=== PATIENT | male | born 1965 | race Caucasian/White ===

== ENCOUNTER 2022-09-24 10:54 | Emergency (ER) | payer BC, SELFPAY ==
[2022-09-24 11:13] VITALS: BP 156/89; PULSE 48; RESP 20; TEMP 35.7; O2SAT 96; BMI 38.7
--- NOTE | 2022-09-24 11:38 | CRLHL7_ITS ---
For Patients: As a result of the Century Cures Act, medical imaging exams and procedure reports are released immediately into your electronic medical record. You may view this report before your referring provider. If you have questions, please contact your health care provider. DATE: 09/24/2022. CLINICAL HISTORY: Syncope. TECHNIQUE: Standard helical CT image acquisition through the head and neck following the administration of intravenous contrast was performed. Multiplanar reconstructed images performed on a separate workstation. COMPARISON: None available. FINDINGS: The great vessels are patent. The common carotid arteries are patent. The proximal ICAs are patent without signficant stenoses by NASCET criteria. The more distal cervical ICAs are patent. The origins of the vertebral arteries are patent. The cervical segments of the vertebral arteries are patent. The petrous, cavernous, and supraclinoid segments of the internal carotid arteries are patent. The anterior and middle cerebral arteries are patent. The anterior communicating artery is visualized and is within normal limits. The intracranial vertebral arteries, basilar trunk, and posterior cerebral arteries are patent. No intracranial proximal large vessel occlusion or flow-limiting luminal stenosis. No evidence of cerebral aneurysm. No findings to suggest an arterial-venous shunting lesion. Partial visualization of a calcified lesion in the visualized upper lobe of the right lung likely reflects a granuloma. Calcified superior mediastinal lymph nodes. IMPRESSION: 1. No intracranial proximal large vessel occlusion or flow-limiting luminal stenosis. 2. Patent cervical arterial vasculature without hemodynamically significant luminal stenosis. Please note that all CT scans at this facility use dose modulation, iterative reconstruction, and/or weight-based dosing when appropriate to reduce radiation dose to as low as reasonably achievable. Dictated by Colton An MD @ 09/24/2022 1:42:20 PM (Electronically Signed)
--- NOTE | 2022-09-24 11:38 | CRLHL7_ITS ---
For Patients: As a result of the Century Cures Act, medical imaging exams and procedure reports are released immediately into your electronic medical record. You may view this report before your referring provider. If you have questions, please contact your health care provider. INDICATION: Syncope. TECHNIQUE: Noncontrast CT images acquired through the brain. COMPARISON: None. FINDINGS: The ventricles and sulci are within normal limits for patient age. No mass effect or midline shift. The guerra-white differentiation is maintained. No acute intracranial hemorrhage or pathologic extra-axial fluid collection. The globes are symmetric. The calvarium is intact. The visualized paranasal sinuses and mastoid air cells are clear. IMPRESSION: No acute intracranial hemorrhage or mass effect. Please note that all CT scans at this facility use dose modulation, iterative reconstruction, and/or weight-based dosing when appropriate to reduce radiation dose to as low as reasonably achievable. Dictated by Pedro Tuttle MD @ 09/24/2022 12:28:53 PM (Electronically Signed)
--- NOTE | 2022-09-24 11:45 | ED_ITS ---
HPI - General Adult General Time Seen by Provider: 11:45 Date Seen: 09/24/22 Chief complaint: Syncope/Fainted Stated complaint: lightheaded syncope Time Seen by Provider: 09/24/22 11:05 Source: patient Mode of arrival: ambulatory Limitations: no limitations History of Present Illness HPI narrative: Patient is a 57-year-old male had a syncopal episode this morning. He reports that he has not had any these in the past. He reports he got up and was feeling okay this morning. He reports that he had sexual relations with his , and then subsequently developed this syncopal spell. He was putting his clothes on and he felt lightheaded and went to the ground. He denies any injury. He had no chest pain. He has a mild headache, a his reports that he has been a little slow to respond. He denies hitting his head. He has had no recent fever chills cough. He has no history of current coronary disease. Does have history of hypertension for which she takes medication Related Data Allergies Allergy/AdvReac Type Severity Reaction Status Date / Time No Known Drug Allergies Allergy Verified 09/24/22 11:12 Review of Systems Status of ROS: Reports: 10 or more systems reviewed and unremarkable except as noted in History and below [facility] Social History Smoking Status: Never smoker Do you use any of these nicotine containing products: None Second hand tobacco smoke exposure: No How often do you have a drink containing alcohol: 2-4 times a month How many standard drinks containing alcohol do you have on a typical day: 1 or 2 How often do you have six or more drinks on one occasion: Never AUDIT-C Alcohol total score: 2 Non-prescribed substance use: denies use service: No Exam Narrative: Exam Narrative: Objective: Vital signs show slightly elevated blood pressure Patient is alert orient x3, his reports that from baseline is little slow to respond but he does not respond appropriately. HEENt is unremarkable, pupils are equal reaction to light, extraocular moves intact, no facial asymmetry tongue, mouth slightly dry tongue protrudes midline, no facial asymmetry Neck is supple Chest is clear Heart rhythm regular 2/6 systolic ejection murmur no S3-S4 Abdomen obese benign nontender Extremities are no edema neurologic nonfocal, good peripheral perfusion, skin warm and dry Const: Vital Signs, click to edit/add: Vital Signs - 24 hr 09/24/22 11:13 09/24/22 11:50 09/24/22 13:13 Temperature 96.3 F L Pulse Rate Pulse Rate [Apical ] 48 L Respiratory Rate 20 Blood Pressure Blood Pressure [Le ft Upper Arm] 156/89 H Blood Pressure [or thostatic sitting Right Arm] 156/101 H Pulse Oximetry 96 95 Oxygen Delivery Me thod Room Air 09/24/22 12:43 09/24/22 13:00 09/24/22 13:02 Temperature Pulse Rate 57 L 52 L 62 Pulse Rate [Apical ] Respiratory Rate Blood Pressure 156/101 H Blood Pressure [Le ft Upper Arm] Blood Pressure [or thostatic sitting Right Arm] Pulse Oximetry 99 100 98 Oxygen Delivery Me thod Course Vital Signs Vital signs: Initial Vital Signs Temperature 96.3 F L 09/24/22 11:13 Temperature Source Temporal Artery Scan 09/24/22 11:13 Pulse Rate 48 L 09/24/22 11:13 Pulse Rhythm 09/24/22 11:13 Respiratory Rate 20 09/24/22 11:13 Blood Pressure 156/89 H 09/24/22 11:13 Blood Pressure Mean 111 09/24/22 11:13 Blood Pressure Position Supine 09/24/22 11:13 Pulse Oximetry 96 09/24/22 11:13 Oxygen Delivery Method 09/24/22 11:13 Vital Signs Temperature 96.3 F L 09/24/22 11:13 Pulse Rate 48 L 09/24/22 11:13 Respiratory Rate 20 09/24/22 11:13 Blood Pressure 156/89 H 09/24/22 11:13 Pulse Oximetry 96 09/24/22 11:13 Oxygen Delivery Method 09/24/22 11:13 Temperature 96.3 F L 09/24/22 11:13 Pulse Rate 62 09/24/22 13:02 Respiratory Rate 20 09/24/22 11:13 Blood Pressure 156/101 H 09/24/22 13:13 Pulse Oximetry 98 09/24/22 13:02 Oxygen Delivery Method 09/24/22 11:13 Medical Decision Making MDM Narrative Medical decision making narrative: [age] year white male with post coital syncopal episode, he has felt mildly dehydrated, his pulse was slow, likely this is a vasovagal type spell. However I think given his situation, I think a CT scan of his head as well as a CTA of his head neck would be appropriate, rule out stroke. The patient will get laboratory studies, EKG, troponin. Disposition pending findings. Will give him 1 L normal saline. Continue to monitor hemodynamics. Addendum: Patient has a head and neck CT angio there are unremarkable his head also looks unremarkable on CT. The patient's laboratory studies look reassu ring, platelets a were a little low at 121,000 hundred twenty one thousand his liver function profile is unremarkable troponin negative CRP negative negative for COVID influenza and RSV. Patient's EKG by my read shows sinus bradycardia no acute ST T wave changes limited R-wave progression anteriorly. This point he feels stable reassured I think observation at home would be appropriate I think all. I think also appropriately would be reasonable to put a Holter monitor on him. Follow-up with primary care in the next 2-3 days certainly sooner changes or concerns return to ED light activity in from. Lab Data Labs: Lab Results 09/24/22 09/24/22 09/24/22 Range/Units 11:55 11:55 11:55 WBC 9.28 (4.50-11.00) K/uL RBC 5.58 (4.30-5.90) m/uL Hgb 16.6 (13.5-17.5) gm/dL Hct 48.6 (37.0-53.0) % MCV 87 (80-100) fL MCH 30 (26-34) pg MCHC 34 (32-36) gm/dL RDW Coeff of Rogerio 13.0 (11.5-15.5) % Plt Count 121 L (140-440) K/uL Neut % (Auto) 84.5 H (42.0-72.0) % Lymph % (Auto) 10.0 L (20-44) % [place] % (Auto) 4.8 (0.0-11.0) % Eos % (Auto) 0.5 (0.0-7.0) % Baso % (Auto) 0.1 (0.0-3.0) % Neut # (Auto) 7.80 H (1.7-7.0) K/uL Lymph # (Auto) 0.90 (0.90-2.90) K/uL [place] # (Auto) 0.40 (0.00-0.90) K/UL Eos # (Auto) 0.05 (0.00-0.50) K/uL Baso # (Auto) 0.01 (0.00-0.30) K/uL INR 1.02 (0.91-1.10) APTT 25 (23-33) Seconds Sodium 141 (135-149) mmol/L Potassium 4.9 (3.6-5.1) mmol/L Chloride 106 (96-114) mmol/L Carbon Dioxide 32 (20-32) mmol/L BUN 18 (7-30) mg/dL Creatinine 0.9 (0.5-1.5) mg/dL Estimated Creat Clear 99.40 Estimated GFR 100 ml/min Glucose 115 (60-115) mg/dL Calcium 9.5 (8.4-10.6) mg/dL Total Bilirubin (0.1-1.5) mg/dL Direct Bilirubin (0.0-0.5) mg/dL AST (12-35) U/L ALT (4-50) U/L Alkaline Phosphatase (40-150) U/L Troponin I (0.01-0.04) ng/mL C-Reactive Protein (0.5-1.0) mg/dL Total Protein (6.0-8.3) g/dL Albumin (3.3-5.0) g/dL SARS-CoV-2 (PCR) (Negative) Influenza Type A (PCR) (Negative) Influenza Type B (PCR) (Negative) RSV (PCR) (Negative) 09/24/22 09/24/22 Range/Units 11:55 11:55 WBC (4.50-11.00) K/uL RBC (4.30-5.90) m/uL Hgb (13.5-17.5) gm/dL Hct (37.0-53.0) % MCV (80-100) fL MCH (26-34) pg MCHC (32-36) gm/dL RDW Coeff of Rogerio (11.5-15.5) % Plt Count (140-440) K/uL Neut % (Auto) (42.0-72.0) % Lymph % (Auto) (20-44) % [place] % (Auto) (0.0-11.0) % Eos % (Auto) (0.0-7.0) % Baso % (Auto) (0.0-3.0) % Neut # (Auto) (1.7-7.0) K/uL Lymph # (Auto) (0.90-2.90) K/uL [place] # (Auto) (0.00-0.90) K/UL Eos # (Auto) (0.00-0.50) K/uL Baso # (Auto) (0.00-0.30) K/uL INR (0.91-1.10) APTT (23-33) Seconds Sodium (135-149) mmol/L Potassium (3.6-5.1) mmol/L Chloride (96-114) mmol/L Carbon Dioxide (20-32) mmol/L BUN (7-30) mg/dL Creatinine (0.5-1.5) mg/dL Estimated Creat Clear Estimated GFR ml/min Glucose (60-115) mg/dL Calcium (8.4-10.6) mg/dL Total Bilirubin 1.0 (0.1-1.5) mg/dL Direct Bilirubin 0.0 (0.0-0.5) mg/dL AST 28 (12-35) U/L ALT 29 (4-50) U/L Alkaline Phosphatase 54 (40-150) U/L Troponin I < 0.01 L (0.01-0.04) ng/mL C-Reactive Protein 0.6 (0.5-1.0) mg/dL Total Protein 7.3 (6.0-8.3) g/dL Albumin 4.4 (3.3-5.0) g/dL SARS-CoV-2 (PCR) Negative SARS-CoV-2 (Negative) Influenza Type A (PCR) Negative PCR FLU A (Negative) Influenza Type B (PCR) Negative PCR FLU B (Negative) RSV (PCR) Negative PCR RSV (Negative) Discharge Plan Discharge Clinical Impression: Syncope Patient Disposition: Home w/ Parent or Adult Condition: Improved Instructions: Syncope (ED) Additional Instructions: Rest, light activity, recheck with primary care within the next week. Pulse has been in a good state at this point, but would put him on a Holter monitor to monitor for the next 2 days. Light activity, fluids, return as needed sooner. Activity Level: Light activity Discharge Diet: Regular Stand Alone Forms: [employer] Info Instructions
[2022-09-24 11:50] VITALS: O2SAT 95
[2022-09-24 12:10] LABS: Basophils Absolute Auto 0.01 K/uL (0.00-0.30); Basophils Percent Auto 0.1 % (0.0-3.0); Eosinophils Absolute Auto 0.05 K/uL (0.00-0.50); Eosinophils Percent Auto 0.5 % (0.0-7.0); Hematocrit 48.6 % (37.0-53.0); Hemoglobin* 16.6 gm/dL (13.5-17.5); Immature Granulocytes Abs Auto 0.01 K/uL (0.00-0.30); Immature Granulocytes Pct Auto 0.1 %; Mean Corpuscular HGB Conc 34 gm/dL (32-36); Mean Corpuscular Hemoglobin 30 pg (26-34); Mean Corpuscular Volume 87 fL (80-100); Monocytes Percent Auto 4.8 % (0.0-11.0); Neutrophils Percent Auto 84.5 % (42.0-72.0); Platelet Count* 121 K/uL (140-440); Red Blood Count 5.58 m/uL (4.30-5.90); Slide Review Reflex No; White Blood Count* 9.28 K/uL (4.50-11.00)
[2022-09-24 12:16] LABS: Albumin* 4.4 g/dL (3.3-5.0)
[2022-09-24 12:17] LABS: Chloride* 106 mmol/L (96-114); Sodium* 141 mmol/L (135-149)
[2022-09-24 12:18] LABS: Potassium* 4.9 mmol/L (3.6-5.1)
[2022-09-24 12:20] LABS: Alanine Aminotransferase* 29 U/L (4-50); Alkaline Phosphatase* 54 U/L (40-150); Aspartate Amino Transferase* 28 U/L (12-35); Creatinine* 0.9 mg/dL (0.5-1.5); Estimated Glomerular Filt Rate 100 ml/min; Total Protein* 7.3 g/dL (6.0-8.3)
[2022-09-24 12:21] LABS: Blood Urea Nitrogen* 18 mg/dL (7-30); Calcium* 9.5 mg/dL (8.4-10.6); Carbon Dioxide* 32 mmol/L (20-32); Glucose* 115 mg/dL (60-115)
[2022-09-24 12:23] LABS: C Reactive Protein* 0.6 mg/dL (0.5-1.0)
[2022-09-24] MEDS: 0.9 % SODIUM CHLORIDE 1000 ml 1,000 ML 6000 ML IV (12:24)
[2022-09-24 12:32] LABS: Troponin I* < 0.01 ng/mL (0.01-0.04)
[2022-09-24 12:37] LABS: INR 1.02 (0.91-1.10)
[2022-09-24 12:38] LABS: Partial Thromboplastin Time* 25 Seconds (23-33)
[2022-09-24 12:42] LABS: PCR FLU A Negative PCR FLU A (Negative); PCR FLU B Negative PCR FLU B (Negative); PCR RSV Negative PCR RSV (Negative)
[2022-09-24 12:43] VITALS: PULSE 57; O2SAT 99
[2022-09-24 12:51] LABS: SARS PCR* Negative SARS-CoV-2 (Negative)
[2022-09-24 13:00] VITALS: PULSE 52; O2SAT 100
[2022-09-24 13:02] VITALS: BP 156/101; PULSE 62; O2SAT 98
[2022-09-24 13:13] VITALS: BP 156/101
--- NOTE | 2022-10-19 09:23 | ED.NURSE ---
Contacted patient regarding Holter monitor results per Dr. Rich's orders. Per Dr. Rich Holter monitor results looked okay and patient is to follow up with primary physician for follow up. Pt given these instructions and states he will follow up with Yaron Nur in [place]. [employer] will fax results to [facility]
== END 2022-09-24 13:47 | disposition home or self-care (01) ==
PROVIDERS: Emergency Provider Family Medicine
DX: R55 Syncope and collapse (principal)
CPT/HCPCS: 36415; 70450; 70496; 70498; 80048; 80076; 84484; 85025; 85610; 85730; 86140; 87502; 87634; 87635; 93005; 93225; 93226; 94761; 99284; 99285; J7030; Q9967

== ENCOUNTER 2023-02-23 14:25 | Emergency (ER) | payer BC, SELFPAY ==
[2023-02-23] VITALS (29 sets, daily range): BP systolic 156–185; BP diastolic 80–108; PULSE 42–61; RESP 20; TEMP 36.6; O2SAT 90–99; BMI 39.3
--- NOTE | 2023-02-23 15:03 | CRLHL7_ITS ---
For Patients: As a result of the 21st Century Cures Act, medical imaging exams and procedure reports are released immediately into your electronic medical record. You may view this report before your referring provider. If you have questions, please contact your health care provider. Indication: Left lower quadrant and epigastric pain, flank pain, evaluate for renal stone Technique: Volumetric multidetector CT images of the abdomen and pelvis were without the administration of intravenous contrast. Comparison: None available. Findings: There is minimal basilar atelectasis with airspace opacity in the left lung base. The liver is enlarged with moderate hepatomegaly and hepatic steatosis. There are calcified granulomas within the liver and spleen. The gallbladder is unremarkable without evidence of radiopaque calculus. There is no significant common biliary ductal dilatation or abrupt cut off. There are calcified granulomas within the spleen. The stomach and duodenum are grossly unremarkable. The pancreas is normal in attenuation without significant atrophy. The adrenal glands are unremarkable. Cystic changes of the kidneys are appreciated with nonobstructive calculi within the collecting systems. There is no obvious hydronephrosis or hydroureter. There are dependent calculi seen within the bladder the largest measuring 3.8 millimeters. There is moderate stool seen throughout the colon with minimal distal colonic diverticulosis without evidence of diverticulitis. The appendix is not well visualized. There is no significant mesenteric, retroperitoneal, or pelvic sidewall lymph nodes. There is no evidence of mesenteric or retroperitoneal adenopathy. The solid pelvic viscera are grossly unremarkable. There is no free fluid or free air. There is a small fat containing umbilical hernia. The lumbar vertebral body heights are grossly maintained with minimal endplate Schmorl`s defects. There is mild facet arthrosis. Impression: Multiple nonobstructive calculi within the bilateral collecting systems without evidence of hydronephrosis. However, there are dependent calculi within the bilateral the largest measuring 3.8 millimeters within the dependent right lita bladder. Finding likely represents passage of recent calculus. Moderate stool is seen throughout the colon with minimal distal colonic diverticulosis without evidence of diverticulitis. Sequela of granulomatous changes within the liver and spleen. No other acute intra-abdominal abnormalities are appreciated. Please note that all CT scans at this facility use dose modulation, iterative reconstruction, and/or weight-based dosing when appropriate to reduce radiation dose to as low as reasonably achievable. Dictated by Moody Max MD @ 02/23/2023 4:39:37 PM (Electronically Signed)
[2023-02-23] MEDS: 0.9 % SODIUM CHLORIDE 1000 ml 1,000 ML IV (15:14)
[2023-02-23] MEDS: ONDANSETRON 2 MG/ML inj 4 MG IVP (15:17)
[2023-02-23] MEDS: KETOROLAC 15 MG/ML inj IVP (15:19)
[2023-02-23] MEDS: HYDROmorphone 0.5 mg/0.5 ml inj IVP (15:20)
[2023-02-23 15:27] LABS: Basophils Absolute Auto 0.02 K/uL (0.00-0.30); Basophils Percent Auto 0.2 % (0.0-3.0); Eosinophils Absolute Auto 0.05 K/uL (0.00-0.50); Eosinophils Percent Auto 0.6 % (0.0-7.0); Hemoglobin* 17.1 gm/dL (13.5-17.5); Immature Granulocytes Abs Auto 0.08 K/uL (0.00-0.30); Lymphocytes Percent Auto 13.1 % (20-44); Mean Corpuscular HGB Conc 34 gm/dL (32-36); Mean Corpuscular Hemoglobin 30 pg (26-34); Mean Corpuscular Volume 87 fL (80-100); Monocytes Percent Auto 6.2 % (0.0-11.0); Neutrophils Percent Auto 78.9 % (42.0-72.0); Platelet Count* 159 K/uL (140-440); RDW Coefficient of Variation % 13.1 % (11.5-15.5); Red Blood Count 5.72 m/uL (4.30-5.90); White Blood Count* 8.42 K/uL (4.50-11.00)
[2023-02-23 15:30] LABS: Slide Review Reflex No
--- NOTE | 2023-02-23 15:32 | ED_ITS ---
HPI - General Adult General Time Seen by Provider: 15:00 Date Seen: 02/23/23 Chief complaint: Abdominal Pain Stated complaint: abdominal pain with difficultly breathing Time Seen by Provider: 02/23/23 14:53 History of Present Illness HPI narrative: 57-year-old male with a past history including kidney stones, previous appendectomy, presenting to the ER today with abdominal pain, pain is so sore his abdomen and makes it difficult for him to breathe. He reports that he initially developed abdominal pain two or 3 nights ago. It was fairly generalized at 1st. He was seen in the clinic in [place] 2 days ago and apparently had an x-ray that showed he was constipated. Pain was better yesterday but present throughout the day in a mild level. He was taking MiraLax and has passed a couple of small volume bowel movements her peanut butter consistency. No bloody or black stool. No diarrhea. Has sometimes been nauseous but no vomiting. He was having mild pain today but felt well enough to go to work. No particular new activity at work or any known injury. This afternoon the pain got dramatically worse. Pain is now more on the left side of his abdomen and then generalized. It is also epigastric. It makes him sweaty and nauseous. It does affect his left flank but does not really radiate through to the back. No groin pain. He thinks he passed a kidney stone this weekend, as he noted a Miranda in his urine but has not had any ongoing flank pain or hematuria or other symptoms of UTI. No fever. Related Data Home Medications Medication Instructions Recorded Confirmed lisinopril 40 mg tablet 40 mg PO DAILY 02/23/23 02/23/23 Previous Rx's Medication Instructions Recorded hydrocodone 5 mg-acetaminophen 325 1 tab PO Q6H #14 tabs 02/23/23 mg tablet omeprazole 40 mg capsule,delayed 40 mg PO DAILY #30 caps 02/23/23 release sucralfate 1 gram tablet (Carafate) 1 g PO Q6H PRN #30 tabs 02/23/23 Allergies Allergy/AdvReac Type Severity Reaction Status Date / Time No Known Drug Allergies Allergy Verified 02/23/23 14:36 PFSH PFSH Social History Smoking Status: Never smoker Do you use any of these nicotine containing products: None Second hand tobacco smoke exposure: No How often do you have a drink containing alcohol: 2-4 times a month How many standard drinks containing alcohol do you have on a typical day: 1 or 2 How often do you have six or more drinks on one occasion: Never AUDIT-C Alcohol total score: 2 Non-prescribed substance use: denies use service: No Exam Narrative: Exam Narrative: Constitutional: Appears well-developed and well-nourished. Alert. Conversant. Non toxic. HENT: Head: Atraumatic. Nose: Nose normal. Mouth/Throat: Oral mucosa is clear and moist. no trismus. Pharynx normal. Tonsils symmetric. No tonsillar enlargement, erythema, or exudate. Eyes: Conjunctivae normal. EOM normal. Pupils equal, round, and reactive to light. No scleral icterus. Neck: Normal range of motion. Neck supple. No tracheal deviation present. Cardiovascular: Normal rate, regular rhythm. No gallop. No friction rub. No murmur heard. Symmetric radial artery pulses Pulmonary/Chest: Effort normal. No stridor. No respiratory distress. No wheezes. No rales. No rhonchi . No tenderness. Abdominal: Soft. Bowel sounds normal. No distension. No mass. Epigastric, left upper quadrant, left lower quadrant, and left CVA tenderness. No right upper quadrant tenderness or Kelly sign. No right lower quadrant tenderness. No rash. No bruising. No shingles. No rebound. No guarding. Musculoskeletal: RUE: Normal range of motion. No tenderness. No deformity LUE: Normal range of motion. No tenderness. No deformity RLE: Normal range of motion. No edema. No tenderness. No deformity LLE: Normal range of motion. No edema. No tenderness. No deformity Neurological: Alert and oriented to person, place, and time. Normal strength. CN II-VII intact. No sensory deficit. GCS eye subscore is 4. GCS verbal subscore is 5. GCS motor subscore is 6. Normal coordination Skin: Skin is warm and dry. No rash noted. No pallor. Normal capillary refill. Psychiatric: Normal mood. Normal affect. Const: Vital Signs, click to edit/add: Vital Signs - 24 hr 02/23/23 14:32 02/23/23 14:47 02/23/23 14:48 Temperature 97.9 F Pulse Rate 54 L 51 L Pulse Rate [Pulse Oximeter] 50 L Respiratory Rate 20 Blood Pressure 169/84 H Blood Pressure [Ri ght Upper Arm] 185/91 H Pulse Oximetry 98 94 95 Oxygen Delivery Me thod Room Air Oxygen Flow Rate 02/23/23 15:00 02/23/23 15:02 02/23/23 15:15 Temperature Pulse Rate 51 L 49 L 47 L Pulse Rate [Pulse Oximeter] Respiratory Rate Blood Pressure 168/95 H Blood Pressure [Ri ght Upper Arm] Pulse Oximetry 98 96 97 Oxygen Delivery Me thod Oxygen Flow Rate 02/23/23 15:32 02/23/23 15:34 02/23/23 15:45 Temperature Pulse Rate 49 L 47 L 44 L Pulse Rate [Pulse Oximeter] Respiratory Rate Blood Pressure 170/95 H Blood Pressure [Ri ght Upper Arm] Pulse Oximetry 95 90 97 Oxygen Delivery Me thod Oxygen Flow Rate 02/23/23 15:53 02/23/23 16:00 02/23/23 16:02 Temperature Pulse Rate 43 L 45 L Pulse Rate [Pulse Oximeter] Respiratory Rate Blood Pressure 160/83 H Blood Pressure [Ri ght Upper Arm] Pulse Oximetry 97 98 95 Oxygen Delivery Me thod Nasal Cannula Oxygen Flow Rate 2 02/23/23 16:15 02/23/23 16:31 02/23/23 16:32 Temperature Pulse Rate 48 L 46 L 47 L Pulse Rate [Pulse Oximeter] Respiratory Rate Blood Pressure 160/86 H Blood Pressure [Ri ght Upper Arm] Pulse Oximetry 98 95 97 Oxygen Delivery Me thod Oxygen Flow Rate 02/23/23 16:46 02/23/23 17:01 02/23/23 17:02 Temperature Pulse Rate 42 L 43 L 45 L Pulse Rate [Pulse Oximeter] Respiratory Rate Blood Pressure 156/80 H Blood Pressure [Ri ght Upper Arm] Pulse Oximetry 97 98 98 Oxygen Delivery Me thod Oxygen Flow Rate 02/23/23 17:16 02/23/23 17:31 02/23/23 17:33 Temperature Pulse Rate 44 L 46 L 45 L Pulse Rate [Pulse Oximeter] Respiratory Rate Blood Pressure 175/91 H Blood Pressure [Ri ght Upper Arm] Pulse Oximetry 98 98 98 Oxygen Delivery Me thod Oxygen Flow Rate 02/23/23 17:46 02/23/23 18:00 02/23/23 18:03 Temperature Pulse Rate 49 L 43 L 60 Pulse Rate [Pulse Oximeter] Respiratory Rate Blood Pressure 181/108 H Blood Pressure [Ri ght Upper Arm] Pulse Oximetry 98 98 98 Oxygen Delivery Me thod Oxygen Flow Rate 02/23/23 18:15 02/23/23 18:30 02/23/23 18:33 Temperature Pulse Rate 49 L 56 L 55 L Pulse Rate [Pulse Oximeter] Respiratory Rate Blood Pressure 164/85 H Blood Pressure [Ri ght Upper Arm] Pulse Oximetry 99 97 94 Oxygen Delivery Me thod Oxygen Flow Rate 02/23/23 18:45 02/23/23 19:00 Temperature Pulse Rate 61 50 L Pulse Rate [Pulse Oximeter] Respiratory Rate Blood Pressure Blood Pressure [Ri ght Upper Arm] Pulse Oximetry 95 93 Oxygen Delivery Me thod Oxygen Flow Rate Documenting provider has reviewed patient's vital signs: yes Course Vital Signs Vital signs: Initial Vital Signs Temperature 97.9 F 02/23/23 14:32 Temperature Source Oral 02/23/23 14:32 Pulse Rate 50 L 02/23/23 14:32 Pulse Rhythm Regular 02/23/23 14:32 Pulse Strength 3+ Normal 02/23/23 14:32 Respiratory Rate 20 02/23/23 14:32 Blood Pressure 185/91 H 02/23/23 14:32 Blood Pressure Mean 122 H 02/23/23 14:32 Blood Pressure Position Sitting 02/23/23 14:32 Pulse Oximetry 98 02/23/23 14:32 Oxygen Delivery Method Room Air 02/23/23 14:32 Vital Signs Temperature 97.9 F 02/23/23 14:32 Pulse Rate 50 L 02/23/23 14:32 Respiratory Rate 20 02/23/23 14:32 Blood Pressure 185/91 H 02/23/23 14:32 Pulse Oximetry 98 02/23/23 14:32 Oxygen Delivery Method Room Air 02/23/23 14:32 Temperature 97.9 F 02/23/23 14:32 Pulse Rate 50 L 02/23/23 19:00 Respiratory Rate 20 02/23/23 14:32 Blood Pressure 164/85 H 02/23/23 18:33 Pulse Oximetry 93 02/23/23 19:00 Oxygen Delivery Method Nasal Cannula 02/23/23 15:53 Oxygen Flow Rate 2 02/23/23 15:53 Medical Decision Making MDM Narrative Medical decision making narrative: Presented to the Emergency Department with epigastric, left upper quadrant, and left-sided abdominal pain. The differential diagnosis of abdominal pain includes: Bowel Obstruction, gastritis, Ulcer, Ischemia, Cholecystitis, Diverticulitis, Pancreatitis, UTI, kidney stone, Enteritis/Colitis, amongst many other etiologies. He has had previous appendectomy. Laboratory testing does not reveal a cause for the patient's pain. Lipase normal. CBC reassuring. Stone protocol CT Imaging is noted to be normal. He does have stones with his urinary bladder and a couple of nonobstructing stones within the renal pelvises bilaterally but no other ureteral stones or hydronephrosis. No evidence for bowel obstruction, colitis, diverticulitis, free air. The exact etiology of the abdominal pain is not clear at this time. No life threatening cause or need for emergent surgery or hospital admission is detected today. With a predominance of epigastric pain patient thinks he may have ulcers. He has apparently had H pylori and ulcers in the past. Will start him empirically on Carafate and Prilosec. [place] to use as needed for pain control over the next 24 hours. Patient The patient was advised that if symptoms do not completely resolve within another 1-2 days re-evaluation with primary care or return to the ED is indicated. The patient also understands that if they worsen, they should return to the ER right away. I discussed the uncertainty about the diagnosis and answered the patient's questions. He understands that gastritis cannot be confirmed here in the ER. He will need outpatient follow-up with PCP to arrange endoscopy. He plans to follow-up with [facility]. Abdominal pain return precautions discussed. Incidentally there is note of bilateral atelectasis on his CT scan. There is also mention of a airspace opacity in the lower lung. He has not had any recent cough or other pulmonary symptoms. I believe this is related to atelectasis. Lab Data Labs: Lab Results 02/23/23 02/23/23 Range/Units 14:45 18:02 WBC 8.42 (4.50-11.00) K/uL RBC 5.72 (4.30-5.90) m/uL Hgb 17.1 (13.5-17.5) gm/dL Hct 50.0 (37.0-53.0) % MCV 87 (80-100) fL MCH 30 (26-34) pg MCHC 34 (32-36) gm/dL RDW Coeff of Rogerio 13.1 (11.5-15.5) % Plt Count 159 (140-440) K/uL Neut % (Auto) 78.9 H (42.0-72.0) % Lymph % (Auto) 13.1 L (20-44) % [place] % (Auto) 6.2 (0.0-11.0) % Eos % (Auto) 0.6 (0.0-7.0) % Baso % (Auto) 0.2 (0.0-3.0) % Neut # (Auto) 6.60 (1.7-7.0) K/uL Lymph # (Auto) 1.10 (0.90-2.90) K/uL [place] # (Auto) 0.50 (0.00-0.90) K/UL Eos # (Auto) 0.05 (0.00-0.50) K/uL Baso # (Auto) 0.02 (0.00-0.30) K/uL Abs Immat Gran (auto) 0.08 (0.00-0.30) K/uL Imm/Tot Granulo (auto) 1.0 % Sodium 140 (135-149) mmol/L Potassium 3.8 (3.6-5.1) mmol/L Chloride 104 (96-114) mmol/L Carbon Dioxide 29 (20-32) mmol/L BUN 13 (7-30) mg/dL Creatinine 1.0 (0.5-1.5) mg/dL Estimated Creat Clear 89.46 Estimated GFR 88 ml/min Glucose 123 H (60-115) mg/dL Calcium 9.6 (8.4-10.6) mg/dL Total Bilirubin 1.0 (0.1-1.5) mg/dL AST 37 H (12-35) U/L ALT 37 (4-50) U/L Alkaline Phosphatase 57 (40-150) U/L Total Protein 8.0 (6.0-8.3) g/dL Albumin 4.7 (3.3-5.0) g/dL Lipase 116 (23-300) U/L Urine Color Yellow (Yellow) Urine Appearance Clear (Clear) Urine pH 6.0 (5.0-8.5) Ur Specific [place] 1.025 (1.000-1.030) Urine Protein Negative (Negative) Urine Glucose (UA) Negative (Negative) Urine Ketones Trace A (Negative) Urine Blood Trace-intact A (Negative) Urine Nitrite Negative (Negative) Urine Bilirubin Negative (Negative) Urine Urobilinogen 0.2 (0.2-1.0) Ur Leukocyte Esterase Negative (Negative) Urine RBC Cancelled Urine WBC Cancelled Urine WBC Clumps Cancelled Ur Squamous Epith Cells Cancelled [place] Biurate Crystals Cancelled Calcium Carbonate Cryst Cancelled Calcium Phosphate Cryst Cancelled Calcium Oxalate Crystal Cancelled Cystine Crystals Cancelled Uric Acid Crystals Cancelled Triple Phos Crystals Cancelled Sulfur Crystals Cancelled Cholesterol Crystals Cancelled Tyrosine Crystals Cancelled Hippuric Acid Crystals Cancelled Amorphous Sediment Cancelled Other Sediment Cancelled Urine Bacteria Cancelled Fatty Casts Cancelled Hyaline Casts Cancelled Fine Granular Casts Cancelled Coarse Granular Casts Cancelled Waxy Casts Cancelled RBC Casts Cancelled WBC Casts Cancelled Other Casts Cancelled Urine Starch Cancelled Urine Mucus Cancelled Urine Trichomonas Cancelled Urine Yeast Cancelled Imaging Data CT scan - abdomen: Attestation: I have reviewed the pertinent imaging results. Radiologist's impression: Impression: Multiple nonobstructive calculi within the bilateral collecting systems without evidence of hydronephrosis. However, there are dependent calculi within the bilateral the largest measuring 3.8 millimeters within the dependent right lita bladder. Finding likely represents passage of recent calculus. Moderate stool is seen throughout the colon with minimal distal colonic diverticulosis without evidence of diverticulitis. Sequela of granulomatous changes within the liver and spleen. No other acute intra-abdominal abnormalities are appreciated. Discharge Plan Discharge Clinical Impression: Abdominal pain Qualifiers: Abdominal location: epigastric Qualified Code(s): R10.13 - Epigastric pain Patient Disposition: Home, Self-Care Condition: Stable Instructions: Abdominal Pain (ED) Additional Instructions: As we discussed, we cannot identify the exact cause of your pain today. You do have signs of kidney stones within your kidneys but they are not currently passing and are not causing your pain. We suspect that your pain might be related to stomach acid shukla or ulcers (but these are generally not visible on the CT scan for labs). Please start taking the acid medication. Monitor your symptoms closely in ago worsening or severe pain, fever, bloody vomit or bloody or black stool, weakness, or any concerns return to the ER immediately for recheck Please follow-up with your regular doctor as soon as possible. You may need endoscopy for further workup. Remember, you could come back to the ER any time if you need help Do not drive or operate machinery after you have taken hydrocodone because this can cause drowsiness. Hydrocodone can be addictive. Prescriptions: New hydrocodone-acetaminophen 5-325 mg tablet 1 tab PO Q6H Qty: 14 0RF sucralfate [Carafate] 1 gram tablet 1 g PO Q6H PRNQty: 30 0RF omeprazole 40 mg capsule,delayed release(DR/EC) 40 mg PO DAILY Qty: 30 0RF No Action lisinopril 40 mg tablet 40 mg PO DAILY Follow Up/Referrals: Provider,Not a Local [Primary Care Provider] - Stand Alone Forms: Thermodynamic Process Control Info Instructions
[2023-02-23 15:37] LABS: Albumin* 4.7 g/dL (3.3-5.0)
[2023-02-23 15:38] LABS: Chloride* 104 mmol/L (96-114); Potassium* 3.8 mmol/L (3.6-5.1); Sodium* 140 mmol/L (135-149)
[2023-02-23 15:40] LABS: Alkaline Phosphatase* 57 U/L (40-150); Aspartate Amino Transferase* 37 U/L (12-35); Blood Urea Nitrogen* 13 mg/dL (7-30); Carbon Dioxide* 29 mmol/L (20-32); Est. Creatinine Clearance* 89.46; Estimated Glomerular Filt Rate 88 ml/min
[2023-02-23 15:41] LABS: Alanine Aminotransferase* 37 U/L (4-50); Calcium* 9.6 mg/dL (8.4-10.6); Glucose* 123 mg/dL (60-115); Lipase* 116 U/L (23-300)
--- NOTE | 2023-02-23 15:52 | ED.NURSE ---
Patient's sats dropped to 85% following Dilaudid administration. Patient does reports pain relief and O2 applied via [place].
[2023-02-23 18:12] LABS: Appearance Urine Clear (Clear); Bilirubin Urine Negative (Negative); Blood Urine Trace-intact (Negative); Color Urine Yellow (Yellow); Glucose Urine Negative (Negative); Ketones Urine Trace (Negative); Leukocyte Esterase Urine Negative (Negative); Nitrite Urine Negative (Negative); Protein Urine Negative (Negative); Specific Gravity Urine 1.025 (1.000-1.030); Urobilinogen Urine 0.2 (0.2-1.0)
== END 2023-02-23 19:21 | disposition home or self-care (01) ==
PROVIDERS: Emergency Provider Emergency Medicine
DX: R10.13 Epigastric pain (principal)
CPT/HCPCS: 36415; 74176; 80053; 81003; 81015; 83690; 85025; 87040; 96374; 96375; 99283; 99284; J1170; J1885; J2405; J7030

== ENCOUNTER 2023-02-25 19:21 | Emergency (ER) | payer BC, SELFPAY ==
[2023-02-25] VITALS (19 sets, daily range): BP systolic 101–188; BP diastolic 71–102; PULSE 43–68; RESP 12–16; TEMP 36.2; O2SAT 89–97; BMI 39.3
[2023-02-25] MEDS: KETOROLAC 15 MG/ML inj IVP (20:11)
--- NOTE | 2023-02-25 20:12 | ED.GENADULT ---
HPI - General Adult General Time Seen by Provider: 20:12 Date Seen: 02/25/23 Chief complaint: Abdominal Pain Stated complaint: Abdominal pain Time Seen by Provider: 02/25/23 19:27 Source: patient Mode of arrival: ambulatory Limitations: no limitations History of Present Illness HPI narrative: Patient is a 57-year-old male presented emergency department for abdominal pain. He states he was here 2 days ago was diagnosed with kidney stones. He was sent home with hydrocodone. He states this to the pain was fine but was gradually worse throughout the day. He says the pain was worse again today any tried to take Trinity without improvement in his symptoms. Has had no nausea or vomiting has been able to eat without issue but states the pain is getting worse again and feels like it did a couple days ago. He has fevers, chills, chest pain, dysuria, difficulty urinating, dysuria, headaches, diarrhea. Says the pain is and is of lower abdominal region radiates to his flanks. Patient says he has never had pain like this before prior the to the past few days. Has had appendix removed as a child. Related Data Home Medications Medication Instructions Recorded Confirmed lisinopril 40 mg tablet 40 mg PO DAILY 02/23/23 02/23/23 Previous Rx's Medication Instructions Recorded hydrocodone 5 mg-acetaminophen 325 1 tab PO Q6H #14 tabs 02/23/23 mg tablet omeprazole 40 mg capsule,delayed 40 mg PO DAILY #30 caps 02/23/23 release sucralfate 1 gram tablet (Carafate) 1 g PO Q6H PRN #30 tabs 02/23/23 Allergies Allergy/AdvReac Type Severity Reaction Status Date / Time No Known Drug Allergies Allergy Verified 02/23/23 14:36 Review of Systems Status of ROS: Reports: 10 or more systems reviewed and unremarkable except as noted in History and below [facility] Social History Smoking Status: Never smoker Do you use any of these nicotine containing products: None Second hand tobacco smoke exposure: No How often do you have a drink containing alcohol: 2-4 times a month How many standard drinks containing alcohol do you have on a typical day: 1 or 2 How often do you have six or more drinks on one occasion: Never AUDIT-C Alcohol total score: 2 Non-prescribed substance use: denies use service: No Exam Narrative: Exam Narrative: Const: Well-nourished, Well-developed, in mild distress Eyes: PERRL, no conjunctival injection, and symmetrical lids ENMT: Atraumatic external nose and ears. Moist mucous membranes. Neck: Symmetric, trachea midline, No thyromegaly. CVS: RRR, No murmurs or gallops. Peripheral pulses 2+ and equal in all extremities RESP: Unlabored respiratory effort. Clear to auscultation bilaterally. GI: Mild lower abdominal tenderness to palpation. Nondistended, No rebound or guarding. No CVA tenderness MSK:Extremities w/o deformity, Normal Active ROM Skin: Warm, Dry. No rashes or lesions. Neuro: Normal Muscle tone, No focal neurological deficits. Psych: Awake, Alert, & Oriented x3. Appropriate mood and affect. Const: Vital Signs, click to edit/add: Vital Signs - 24 hr 02/25/23 19:33 02/25/23 20:15 02/25/23 22:24 Temperature 97.1 F L Pulse Rate 50 L Pulse Rate [Pulse Oximeter] 51 L Respiratory Rate 16 Blood Pressure Blood Pressure [Ri ght Upper Arm] 101/71 Pulse Oximetry 96 96 90 Oxygen Delivery Me thod Room Air Room Air 02/25/23 22:27 02/25/23 22:30 02/25/23 22:41 Temperature Pulse Rate 68 46 L 49 L Pulse Rate [Pulse Oximeter] Respiratory Rate Blood Pressure 163/83 H 164/87 H Blood Pressure [Ri ght Upper Arm] Pulse Oximetry 94 97 96 Oxygen Delivery Me thod 02/25/23 22:45 02/25/23 22:57 02/25/23 23:00 Temperature Pulse Rate 43 L 49 L 53 L Pulse Rate [Pulse Oximeter] Respiratory Rate Blood Pressure 152/85 H Blood Pressure [Ri ght Upper Arm] Pulse Oximetry 93 93 93 Oxygen Delivery Me thod 02/25/23 23:11 02/25/23 23:15 02/25/23 23:26 Temperature Pulse Rate 43 L 45 L 56 L Pulse Rate [Pulse Oximeter] Respiratory Rate Blood Pressure 170/94 H 164/85 H Blood Pressure [Ri ght Upper Arm] Pulse Oximetry 94 93 95 Oxygen Delivery Me thod 02/25/23 23:30 Temperature Pulse Rate 47 L Pulse Rate [Pulse Oximeter] Respiratory Rate Blood Pressure Blood Pressure [Ri ght Upper Arm] Pulse Oximetry 96 Oxygen Delivery Me thod Course Vital Signs Vital signs: Initial Vital Signs Temperature 97.1 F L 02/25/23 19:33 Temperature Source Temporal Artery Scan 02/25/23 19:33 Pulse Rate 51 L 02/25/23 19:33 Respiratory Rate 16 02/25/23 19:33 Blood Pressure 101/71 02/25/23 19:33 Blood Pressure Mean 81 02/25/23 19:33 Blood Pressure Position Sitting 02/25/23 19:33 Pulse Oximetry 96 02/25/23 19:33 Oxygen Delivery Method Room Air 02/25/23 19:33 Vital Signs Temperature 97.1 F L 02/25/23 19:33 Pulse Rate 51 L 02/25/23 19:33 Respiratory Rate 16 02/25/23 19:33 Blood Pressure 101/71 02/25/23 19:33 Pulse Oximetry 96 02/25/23 19:33 Oxygen Delivery Method Room Air 02/25/23 19:33 Temperature 97.1 F L 02/25/23 19:33 Pulse Rate 47 L 02/25/23 23:30 Respiratory Rate 16 02/25/23 19:33 Blood Pressure 164/85 H 02/25/23 23:26 Pulse Oximetry 96 02/25/23 23:30 Oxygen Delivery Method Room Air 02/25/23 22:24 Medical Decision Making MDM Narrative Medical decision making narrative: Patient is a 57-year-old male presented emergency department for abdominal pain. Pain started 2 days ago was diagnosed with multiple kidney stones. He states the pain improved yesterday both growing worse again today and the pain medication has not helped with the symptoms. Cbc, CMP, lipase, urinalysis all ordered on this patient. Since this is the same pain he had 2 days ago in here early a CT scan done at that time and not believes necessary to repeat the imaging. Previously showed multiple nonobstructing kidney stones in 1 of the stones could of started causing obstruction again. Does not have an appendix and stump appendicitis is unlikely. Will order lipase check for pancreatitis. Will look at liver enzymes are possible gallbladder disease. Unlikely history of AAA at this time. Patient's lab work returned showing no concerning abnormalities. Urine shows no signs of on a UTI. Obvious in the emergency department his heart rate did drop down to 38. Reviewing his previous chart notes did he does have a history of intermittent bradycardia and had a Holter monitor for this. He was asymptomatic at this time. His heart rate came back up to 60. EKG done wall O was low showed no concerning abnormalities. Oximetry EKGs he has had in the past. Toradol did help with his pain but he was asking for more pain meds and morphine was given. Morphine was given he became hypoxic to 86% but she states happens when he takes narcotics. He was signs of abdominal pain again into the since his previous CT was without contrast I will order [address] working in a better view of what is going on. The CT scan returned showing really no acute new abnormalities. He does have a large left renal cyst some intrarenal calculi but these are unlikely the cause of his symptoms. Patient be discharged home I informed the follow-up with primary care provider and also to speak to his primary care provider but seen a hospital product specialist for his bradycardia. He is agreeable to this plan. Lab Data Labs: Lab Results 02/25/23 02/25/23 02/25/23 Range/Units 20:00 20:05 20:48 WBC 8.22 (4.50-11.00) K/uL RBC 5.47 (4.30-5.90) m/uL Hgb 16.4 (13.5-17.5) gm/dL Hct 47.4 (37.0-53.0) % MCV 87 (80-100) fL MCH 30 (26-34) pg MCHC 35 (32-36) gm/dL RDW Coeff of Rogerio 12.9 (11.5-15.5) % Plt Count 149 (140-440) K/uL Neut % (Auto) 78.8 H (42.0-72.0) % Lymph % (Auto) 13.1 L (20-44) % Placer % (Auto) 7.3 (0.0-11.0) % Eos % (Auto) 0.5 (0.0-7.0) % Baso % (Auto) 0.2 (0.0-3.0) % Neut # (Auto) 6.50 (1.7-7.0) K/uL Lymph # (Auto) 1.10 (0.90-2.90) K/uL Placer # (Auto) 0.60 (0.00-0.90) K/UL Eos # (Auto) 0.04 (0.00-0.50) K/uL Baso # (Auto) 0.02 (0.00-0.30) K/uL Abs Immat Gran (auto) 0.01 (0.00-0.30) K/uL Imm/Tot Granulo (auto) 0.1 % Sodium 141 (135-149) mmol/L Potassium 3.6 (3.6-5.1) mmol/L Chloride 102 (96-114) mmol/L Carbon Dioxide 30 (20-32) mmol/L BUN 19 (7-30) mg/dL Creatinine 1.0 (0.5-1.5) mg/dL Estimated Creat Clear 89.46 Estimated GFR 88 ml/min Glucose 128 H (60-115) mg/dL Calcium 9.6 (8.4-10.6) mg/dL Total Bilirubin 1.0 (0.1-1.5) mg/dL Direct Bilirubin 0.2 (0.0-0.5) mg/dL AST 28 (12-35) U/L ALT 29 (4-50) U/L Alkaline Phosphatase 56 (40-150) U/L Total Protein 7.6 (6.0-8.3) g/dL Albumin 4.5 (3.3-5.0) g/dL Lipase 67 (23-300) U/L Urine Color Yellow (Yellow) Urine Appearance Clear (Clear) Urine pH 7.0 (5.0-8.5) Ur Specific [place] 1.025 (1.000-1.030) Urine Protein Negative (Negative) Urine Glucose (UA) Negative (Negative) Urine Ketones Negative (Negative) Urine Blood Trace-intact A (Negative) Urine Nitrite Negative (Negative) Urine Bilirubin Negative (Negative) Urine Urobilinogen 1.0 (0.2-1.0) Ur Leukocyte Esterase Negative (Negative) Urine RBC 0-2 (0-2) Urine WBC 0-2 (0-5) Ur Squamous Epith Cells None (None-Few) Urine Bacteria None (None) Lab Acknowledgement Test Added Imaging Data CT scan - abdomen: Radiologist's impression: Preliminary Report: Fatty liver. Mild splenomegaly. Left renal cyst. Intrarenal calculi on the left. There also calculi within the urinary bladder. No ureteral calculus. No hydronephrosis. Enlarged prostate. Small hiatal hernia. No small bowel obstruction. Colonic diverticulosis without acute diverticulitis. Atelectasis or scarring within the lung bases appear. Dictated by Prasanth Tello MD @ 02/25/2023 11:48:57 PM ECG Data Attestation: I personally reviewed and interpreted this ECG as follows: (Sinus bradycardia rate 41 beats per minute, normal intervals, normal axis, no ST or T-wave abnormalities. Appears similar to previous EKGs) Prior ECG tracings: available for review Discharge Plan Discharge Clinical Impression: Bradycardia Abdominal pain Qualifiers: Abdominal location: generalized Qualified Code(s): R10.84 - Generalized abdominal pain Patient Disposition: Home, Self-Care Condition: Improved Instructions: Bradycardia (ED), Abdominal Pain (ED) Additional Instructions: Follow-up with your primary care provider. We do not have 1 we will give you a list of places you can follow-up with. When you do see them talk to them about seen a hospital product specialist for your bradycardia. Try ibuprofen 1st before the oxycodone. Return for new or worsening symptoms. Prescriptions: No Action lisinopril 40 mg tablet 40 mg PO DAILY hydrocodone-acetaminophen 5-325 mg tablet 1 tab PO Q6H Qty: 14 0RF sucralfate [Carafate] 1 gram tablet 1 g PO Q6H PRNQty: 30 0RF omeprazole 40 mg capsule,delayed release(DR/EC) 40 mg PO DAILY Qty: 30 0RF Follow Up/Referrals: Provider,Not a Local [Primary Care Provider] - Stand Alone Forms: [employer] Info Instructions
[2023-02-25 20:21] LABS: Basophils Absolute Auto 0.02 K/uL (0.00-0.30); Basophils Percent Auto 0.2 % (0.0-3.0); Eosinophils Absolute Auto 0.04 K/uL (0.00-0.50); Eosinophils Percent Auto 0.5 % (0.0-7.0); Hematocrit 47.4 % (37.0-53.0); Hemoglobin* 16.4 gm/dL (13.5-17.5); Immature Granulocytes Abs Auto 0.01 K/uL (0.00-0.30); Immature Granulocytes Pct Auto 0.1 %; Lymphocytes Percent Auto 13.1 % (20-44); Mean Corpuscular HGB Conc 35 gm/dL (32-36); Mean Corpuscular Hemoglobin 30 pg (26-34); Mean Corpuscular Volume 87 fL (80-100); Monocytes Percent Auto 7.3 % (0.0-11.0); Neutrophils Percent Auto 78.8 % (42.0-72.0); Platelet Count* 149 K/uL (140-440); RDW Coefficient of Variation % 12.9 % (11.5-15.5); Red Blood Count 5.47 m/uL (4.30-5.90); White Blood Count* 8.22 K/uL (4.50-11.00)
[2023-02-25 20:24] LABS: Slide Review Reflex No
[2023-02-25 20:33] LABS: Appearance Urine Clear (Clear); Bilirubin Urine Negative (Negative); Blood Urine Trace-intact (Negative); Color Urine Yellow (Yellow); Glucose Urine Negative (Negative); Ketones Urine Negative (Negative); Leukocyte Esterase Urine Negative (Negative); Nitrite Urine Negative (Negative); Protein Urine Negative (Negative); Specific Gravity Urine 1.025 (1.000-1.030)
[2023-02-25 20:33] LABS: Chloride* 102 mmol/L (96-114); Sodium* 141 mmol/L (135-149)
[2023-02-25 20:34] LABS: Potassium* 3.6 mmol/L (3.6-5.1)
[2023-02-25 20:36] LABS: Carbon Dioxide* 30 mmol/L (20-32); Est. Creatinine Clearance* 89.46; Estimated Glomerular Filt Rate 88 ml/min
[2023-02-25 20:37] LABS: Blood Urea Nitrogen* 19 mg/dL (7-30); Calcium* 9.6 mg/dL (8.4-10.6); Glucose* 128 mg/dL (60-115)
[2023-02-25] MEDS: ONDANSETRON 2 MG/ML inj 4 MG IVP (20:49)
[2023-02-25] MEDS: MORPHINE 4 MG/ML INJ IVP (20:50)
[2023-02-25 20:51] LABS: RBC Urine 0-2 (0-2); WBC Urine 0-2 (0-5)
[2023-02-25 21:19] LABS: Albumin* 4.5 g/dL (3.3-5.0)
[2023-02-25 21:21] LABS: Aspartate Amino Transferase* 28 U/L (12-35); Bilirubin Direct* 0.2 mg/dL (0.0-0.5); Total Protein* 7.6 g/dL (6.0-8.3)
[2023-02-25 21:22] LABS: Alanine Aminotransferase* 29 U/L (4-50); Alkaline Phosphatase* 56 U/L (40-150); Lipase* 67 U/L (23-300)
--- NOTE | 2023-02-25 21:51 | CRLHL7_ITS ---
For Patients: As a result of the Century Cures Act, medical imaging exams and procedure reports are released immediately into your electronic medical record. You may view this report before your referring provider. If you have questions, please contact your health care provider. Indication: ABD PAIN LUQ Technique: Postcontrast CT abdomen and pelvis. 143 cc Isovue 370 intravenous contrast. Please note that all CT scans at this facility use dose modulation, iterative reconstruction, and/or weight-based dosing when appropriate to reduce radiation dose to as low as reasonably achievable. Comparison: 02/23/2023 Findings: Mild atelectatic change noted within the lung bases. No pleural effusion. 2.8 cm hiatal hernia is present. Diffuse low attenuation of the hepatic parenchyma is present. There is an incidental calcification within the left hepatic lobe. Calcified splenic granulomas noted. The adrenal glands are within normal limits. Normal right kidney and right ureter. Cyst arising from the upper pole of the left kidney is noted measuring 7.9 cm. Nonobstructing stone lower pole left kidney measures 4.2 millimeters. Additional nonobstructing stone within upper pole of the left kidney measuring 4 millimeters. The ureters are normal. Small layering stones within the bladder are again noted measuring between 2 and 3 millimeters. Prostate calcifications are present. No bladder wall thickening. No bowel obstruction or free air. No free fluid. No abscess. Gallbladder normal. Normal pancreas. Adrenal glands normal. Similar upper limits of normal portal caval lymph node. Right hip replacement hardware. No fracture. No pars defect or spondylolisthesis. Impression: Nonobstructing left renal stones are similar measuring 4 millimeters. No hydronephrosis or inflammatory change. Stable exophytic cyst upper pole left kidney. Sequela of granulomatous disease within the spleen and liver. No splenomegaly. No bowel obstruction or abscess. No free fluid. Stable subcentimeter retroperitoneal lymph nodes. Fatty liver. Please note that all CT scans at this facility use dose modulation, iterative reconstruction, and/or weight-based dosing when appropriate to reduce radiation dose to as low as reasonably achievable. Dictated by Yves Dixon MD @ 02/27/2023 9:58:58 AM (Electronically Signed)
== END 2023-02-26 00:15 | disposition home or self-care (01) ==
PROVIDERS: Emergency Provider Student in an Organized Health Care Education/Training Program
DX: R10.84 Generalized abdominal pain (principal); R00.1 Bradycardia, unspecified
CPT/HCPCS: 36415; 74177; 80048; 80076; 81001; 83690; 85025; 93005; 94761; 99283; 99284; 99285; J1885; J2270; J2405; Q9967